=== PATIENT | male | born 1985 | race Caucasian/White ===

== ENCOUNTER 2023-03-29 14:02 | Emergency (ER) | payer OTHER, SELFPAY ==
[2023-03-29 14:15] VITALS: BP 119/68; PULSE 62; RESP 16; TEMP 36.6; O2SAT 98; BMI 23.9
--- NOTE | 2023-03-29 17:29 | PC.NURSE ---
Pt has history of skin infections. Unsure if bitten by insect, but noticed redness and swelling to right calf that has increased for past 3 days. Small, pinpoint area with pus. Pt denies fevers, chills, SOB and chest pain.
--- NOTE | 2023-03-29 18:03 | ED_ITS ---
HPI - Wound/Laceration <Yolis Solis PA-C - Last Filed: 03/29/23 18:26> General Chief Complaint: Wound/Laceration Stated Complaint: rt leg wound, poss. infection. Time Seen by Provider: 03/29/23 18:03 Source: patient Mode of arrival: Ambulatory History of Present Illness HPI narrative: Patient is 37-year-old male who presents with right leg swelling, redness and pain. This is developing over a couple of days. He denies fevers or chills. 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 Related Data Previous Rx's Medication Instructions Recorded mupirocin 2 % topical ointment 1 applic topical BID #15 grams 03/29/23 sulfamethoxazole 800 1 tab PO BID 5 days #10 tabs 03/29/23 mg-trimethoprim 160 mg tablet (Bactrim DS) Allergies Allergy/AdvReac Type Severity Reaction Status Date / Time No Known Drug Allergies Allergy Verified 03/29/23 14:15 Review of Systems <Yolis Solis PA-C - Last Filed: 03/29/23 18:26> Review of Systems ROS Unobtainable: All systems reviewed & are unremarkable except as noted in HPI and below Patient History <Yolis Solis PA-C - Last Filed: 03/29/23 18:26> Social History Smoking Status: Current some day smoker Smoking Status: Current some day smoker tobacco type: cigarettes and vaping alcohol intake frequency: a few times a week Substance Use Type: marijuana Exam <Yolis Solis PA-C - Last Filed: 03/29/23 18:26> Narrative Exam Narrative: GENERAL: 37 year old patient appears stated age. Well-developed patient, in no distress. NEURO: AOx3. HEAD: Atraumatic. Normocephalic. RESPIRATORY: No distress EXTREMITIES: Area of edema and erythema over lateral right lower leg. No discrete fluctuance, no abscess seen on bedside ultrasound. Initial Vital Signs Initial Vital Signs: Vital Signs Temperature 97.8 F 03/29/23 14:15 Pulse Rate 62 03/29/23 14:15 Respiratory Rate 16 03/29/23 14:15 Blood Pressure 119/68 03/29/23 14:15 Pulse Oximetry 98 03/29/23 14:15 Oxygen Delivery Method Room Air 03/29/23 14:15 <DO Justine Benitez Last Filed: 03/30/23 07:28> Initial Vital Signs Initial Vital Signs: Vital Signs Temperature 97.8 F 03/29/23 14:15 Pulse Rate 62 03/29/23 14:15 Respiratory Rate 16 03/29/23 14:15 Blood Pressure 119/68 03/29/23 14:15 Pulse Oximetry 98 03/29/23 14:15 Oxygen Delivery Method Room Air 03/29/23 14:15 Course <Yolis Solis PA-C - Last Filed: 03/29/23 18:26> Orders Ordered: Discontinued Medications Trimethoprim/Sulfamethoxazole (Trimeth/Sulfa 160/800 (Ds) Tablet) 3 tab PO NOW ONE Stop: 03/29/23 18:18 Last Admin: 03/29/23 18:25 Dose: 3 tab Documented By: LANNY Vital Signs Vital signs: Vital Signs - 8 hr 03/29/23 14:15 Temperature 97.8 F Pulse Rate 62 Respiratory Rate 16 Blood Pressure 119/68 Pulse Oximetry 98 Oxygen Delivery Method Room Air <DO Justine Benitez Last Filed: 03/30/23 07:28> Orders Ordered: Discontinued Medications Trimethoprim/Sulfamethoxazole (Trimeth/Sulfa 160/800 (Ds) Tablet) 3 tab PO NOW ONE Stop: 03/29/23 18:18 Last Admin: 03/29/23 18:25 Dose: 3 tab Documented By: LANNY Vital Signs Vital signs: Vital Signs - 8 hr 03/29/23 14:15 Temperature 97.8 F Pulse Rate 62 Respiratory Rate 16 Blood Pressure 119/68 Pulse Oximetry 98 Oxygen Delivery Method Room Air MDM - Wound/Laceration <Yolis Solis PA-C - Last Filed: 03/29/23 18:26> MDM Narrative Medical decision making narrative: Multiple etiologies for patient's symptoms considered including, but not limited to: Cellulitis, abscess, rash. Exam consistent with cellulitis, no abscess seen on bedside ultrasound. Scant drainage from the site. Will treat with Bactrim given history of MRSA infection as well as mupirocin. Patient's symptoms improved over duration of stay with above-stated therapies. Findings and discharge diagnosis discussed with patient/family followed by verbalization of understanding Return precautions discussed with patient/family whom verbalize understanding of diagnosis and plan Discharge Plan Departure Patient Disposition: Home Clinical Impression: Cellulitis of right leg Instructions: DI for Cellulitis -- Adult Activity Restrictions/Additional Instructions: *You have been diagnosed with right lower extremity cellulitis. We will give you Bactrim antibiotic to last until Friday morning when you can fill the rest of your prescription at [facility]. The prescription has been sent electronically. I have also prescribed topical antibiotic called mupirocen for MRSA that you can apply to the site. If the wound is worsening or you develop a fever after 48 hours of antibiotics, you should see a medical provider for reassessment. *What to do: *Please continue to take your regular medications as directed. [ x] New medication prescriptions sent to your pharmacy: [ [facility]] [ ] New medication written as a paper prescription [ ] No new medications given *Please follow up with your primary care provider in 2-3 days, call for an appointment. Let them know you were seen in the Emergency Department and that we ask that you be seen in follow up. We will electronically transmit a record of today's note if your PCP is in our system *If you do not have a primary care provider please contact the [facility] Resource line at [phone]. They will ask some questions about your medical history and help get you set up with a doctor in the community. *Return to Emergency Department if you should have any new, worsening or concerning symptoms, such as [fever greater than 101 F, shaking chills, worsening pain, persistent vomiting or other bothersome symptoms] Prescriptions: New sulfamethoxazole-trimethoprim [Bactrim DS] 800-160 mg tablet 1 tab PO BID 5 Days Qty: 10 0RF mupirocin 2 % ointment 1 applic topical BID Qty: 15 0RF Stand Alone Forms: Patient Portal/API <Tracey Mon, - Last Filed: 03/30/23 07:28> Cosign ED Attending Carol Attestation: I was immediately available in the department for consultation. Documentation has been reviewed.
[2023-03-29] MEDS: TRIMETH/SULFA 160/800 (DS) TABLET 3 TAB PO (18:25)
== END 2023-03-29 18:36 | disposition home or self-care (01) ==
PROVIDERS: Emergency Provider Physician Assistant
DX: L03.115 Cellulitis of right lower limb (principal)
CPT/HCPCS: 87070; 87075; 87077; 87147; 87186; 87205; 99283